=== PATIENT | male | born 1945 | race Caucasian/White ===

== ENCOUNTER 2018-07-19 10:24 | Emergency (ER) | payer MEDICARE ==
[2018-07-19] MEDS ORDERED: oxyCODONE 5 MG TABLET PO STA (12:32)
--- NOTE | 2018-07-19 12:35 | ED Physician Documentation ---
PD HPI BACK PAIN - Stated complaint Stated Complaint: HIP/LEG NUMB - Chief complaint Chief Complaint: Back Pain - History obtained from History obtained from: Patient, Family - History of Present Illness Timing - onset: Other (This is a healthy 73-year-old gentleman who developed right-sided low back pain radiating to the leg with numbness of the anterior and lateral right thigh to the knee over the last 5 days. It started after chopping wood. He is tried Excedrin and ibuprofen at home without relief. He has no significant history of back pain.) Review of Systems Constitutional: denies: Fever, Chills, Fatigue, Weight Loss Cardiac: reports: Reviewed and negative Respiratory: reports: Reviewed and negative : reports: Reviewed and negative PD PAST MEDICAL HISTORY - Past Medical History Past Medical History: Yes Cardiovascular: Hypertension, High cholesterol Respiratory: None Endocrine/Autoimmune: None GI: None : None HEENT: Other Psych: None Musculoskeletal: None, Other Derm: None - Past Surgical History Past Surgical History: Yes General: Colonoscopy HEENT: Cataracts - Present Medications Home Medications: Ambulatory Orders Medication Instructions Recorded Confirmed Losartan/Hydrochlorothiazide 1 tab PO DAILY 06/05/15 03/14/16 [Losartan-Hctz 100-12.5 mg Tab] Atorvastatin Calcium 1 tab PO DAILY 07/19/18 07/19/18 Cyclobenzaprine [Flexeril] 10 mg PO TID PRN #20 tablet 07/19/18 Minocycline HCl 1 tab PO BID 07/19/18 07/19/18 predniSONE [Deltasone] 20 mg PO [id number] #21 tab 07/19/18 - Allergies Allergies/Adverse Reactions: Allergies Allergy/AdvReac Type Severity Reaction Status Date / Time No Known Drug Allergies Allergy Verified 07/19/18 10:33 - Social History Does the pt smoke?: Yes Smoking Status: Current every day smoker Does the pt drink ETOH?: Yes ETOH Use: Beer Does the pt have substance abuse?: No - Immunizations Immunizations are current?: Yes PD ED PE NORMAL - Vitals Vital signs reviewed: Yes - General General: Alert and oriented X 3, No acute distress - Abdomen Abdomen: Normal bowel sounds, Soft, Non tender - Back Back: No spinal TTP, Other (Tender to the Right paralumbar muscles, he has Pretty significant but not quite complete numbness in a right L4 distribution, but his patellar reflexes and Achilles reflexes seem symmetric. The only weakness is in dorsiflexion on the right of the great toe.) - Neuro Neuro: Alert and oriented X 3, Normal speech - Psych Psych: Normal mood, Normal affect Results - Vitals Vitals: Vital Signs - 24 hr 07/19/18 10:32 Temperature 36.7 C Heart Rate 71 Respiratory 18 Rate Blood Pressure 151/76 H O2 Saturation 95 Oxygen O2 Source Room air - Rads (name of study) L spine CT Radiology: EMP read contemporaneously (Mild multilevel degenerative changes without evidence of malignancy or mass lesion.) PD MEDICAL DECISION MAKING - ED course ED course: This is a 73-year-old gentleman who presents with an acute sciatica of the right leg with back pain. Given his advanced age CT imaging was done to rule out causative malignancy which was negative. He had no real help with oxycodone here and will go home on prednisone and Flexeril. Departure - Departure Disposition: Home, Self Care Clinical Impression: Sciatica Qualifiers: Laterality: right Qualified Code(s): M54.31 - Sciatica, right side Condition: Good Record reviewed to determine appropriate education?: Yes Instructions: ED Sciatica Prescriptions: Cyclobenzaprine [Flexeril] 10 mg PO TID PRN #20 tablet PRN Reason: Spasms predniSONE [Deltasone] 20 mg PO [id number] #21 tab Comments: Call your doctor to arrange a follow-up appointment, make the next available appointment. In the interim, return anytime if worse or if new symptoms develop. Your blood pressure was elevated today on check into the emergency department. This does not mean that you have hypertension, it is a common phenomenon to come to the emergency department and have elevated blood pressure. I recommend that you see your primary care physician within the week to have it rechecked when you are feeling better.
--- NOTE | 2018-07-19 14:10 | CT Report ---
Reason: new radiculopathy, advanced age, tobacco Procedure Date: 07/19/2018 Accession Number: [id number] / [id number] Procedure: CT - LUMBAR SPINE WO CPT Code: FULL RESULT: EXAM: CT LUMBAR SPINE WITHOUT CONTRAST EXAM DATE: 07/19/2018 01:19 PM. CLINICAL HISTORY: New radiculopathy, advanced age, tobacco. COMPARISONS: None. TECHNIQUE: Thin-section axial images were acquired of the lumbar spine from T12 to S1 without contrast. Post-processing: Coronal and sagittal reformats. Other: None. In accordance with CT protocol optimization, one or more of the following dose reduction techniques were utilized for this exam: automated exposure control, adjustment of mA and/or KV based on patient size, or use of iterative reconstructive technique. FINDINGS: Alignment: No scoliosis or spondylolisthesis. Bones: Five [id number] lumbar vertebral bodies are present. No fractures or bone lesions. Disk Levels/Facets: Please note that observation of the neural foramina are referred to the osseous neural foramen. T12-L1: Mild anterior osteophytosis with mild loss of disk space height, neural foramina generally preserved. L1-L2: Minimal anterior disk osteophyte complex. Mild posterior broad-based disk bulging, neural foramina widely patent. L2-L3: Mild broad-based posterior disk bulging, neural foramina widely patent. L3-L4: Mild broad-based posterior disk bulging with neural foramina widely patent. L4-L5: Mild posterior broad-based disk bulge with mild effect on the mildly narrowed left neural foramen. Right neural foramen is moderately narrowed. L5-S1: Unremarkable. Musculature: Normal. No fatty atrophy. Other: The visualized retroperitoneum is unremarkable. IMPRESSION: Mild multilevel degenerative changes as described. RADIA
[2018-07-19] MEDS ORDERED: predniSONE 20 MG TABLET PO STA (14:20)
[2018-07-19] MEDS ORDERED: CYCLOBENZAPRINE 10 MG TABLET PO STA (14:20)
[2018-07-19 14:27] VITALS: BP 148/74
== END 2018-07-19 14:26 | disposition home or self-care (01) ==
LOC: ED 10:24
DX: M54.31 Sciatica, right side (principal); I10 Essential (primary) hypertension; F17.200 Nicotine dependence, unspecified, uncomplicated
CPT/HCPCS: 72131; 99283; A9270; J7512

== ENCOUNTER 2018-07-24 13:11 | Outpatient (CLI) | payer MEDICARE ==
--- NOTE | 2018-07-24 14:56 | XRAY Report ---
Reason: KNEE PAIN,RIGHT Procedure Date: 07/24/2018 Accession Number: [id number] / [id number] Procedure: XR - Knee 2 View RT CPT Code: FULL RESULT: EXAM: RIGHT KNEE RADIOGRAPHY. EXAM DATE: 07/24/2018 02:06 PM. CLINICAL HISTORY: Knee pain, right. COMPARISON: None. TECHNIQUE: 2 views. FINDINGS: Bones: Normal. No fractures or bone lesions. Joints: No dislocation or subluxation. Possible trace suprapatellar effusion. Soft Tissues: Anterior soft tissue swelling inferior to the patella. IMPRESSION: Anterior soft tissue swelling. No appreciable fracture. No significant effusion. RADIA
== END 2018-07-24 13:12 | disposition home or self-care (01) ==
LOC: DI 13:11
PROVIDERS: ATTEND Physician Assistant
DX: M25.561 Pain in right knee (principal); R22.41 Localized swelling, mass and lump, right lower limb

== ENCOUNTER 2021-09-09 10:01 | Outpatient (CLI) | payer MEDICARE ==
[2021-09-09 11:47] LABS: BASOPHILS % (AUTO) 0.3 %; EOSINOPHILS # (AUTO) 0.1 10^3/uL (0.0-0.7); EOSINOPHILS % (AUTO) 1.3 %; HCT - HEMATOCRIT 38.4 % (42.0-52.0); LYMPHOCYTES # (AUTO) 1.4 10^3/uL (1.5-3.5); LYMPHOCYTES % (AUTO) 23.4 %; MEAN CORPUSCULAR HEMOGLOBIN 32.1 pg (27.0-31.0); MEAN CORPUSCULAR HGB CONC 33.9 g/dL (32.0-36.0); MEAN CORPUSCULAR VOLUME 94.8 fL (80.0-94.0); MEAN PLATELET VOLUME 10.9 fL (7.4-11.4); MONOCYTES # (AUTO) 0.3 10^3/uL (0.0-1.0); MONOCYTES % (AUTO) 5.1 %; NEUTROPHILS # (AUTO) 4.2 10^3/uL (1.5-6.6); NEUTROPHILS % (AUTO) 69.6 %; PLT - PLATELET COUNT 190 10^3/uL (130-450); RED BLOOD COUNT 4.05 10^6/uL (4.70-6.10); RED CELL DISTRIBUTION WIDTH 12.4 % (12.0-15.0); WHITE BLOOD COUNT 6.1 x10^3/uL (4.8-10.8)
[2021-09-09 12:10] LABS: ESTIMATED AVERAGE GLUCOSE 123 mg/dL (70-100); HEMOGLOBIN A1c% 5.9 % (4.27-6.07)
[2021-09-09 12:13] LABS: ALBUMIN 4.5 g/dL (3.2-5.5); ALBUMIN/GLOBULIN RATIO 1.7 (1.0-2.2); ALKALINE PHOSPHATASE 68 IU/L (42-121); ALT ALANINE AMINOTRANSFERASE 29 IU/L (10-60); AST ASPARTATE AMINOTRANSFERASE 24 IU/L (10-42); BILIRUBIN,TOTAL 1.2 mg/dL (0.2-1.0); BUN - BLOOD UREA NITROGEN 18 mg/dL (6-20); CALCIUM 9.2 mg/dL (8.5-10.3); CARBON DIOXIDE - CO2 25 mmol/L (21-32); CHLORIDE 101 mmol/L (101-111); CHOL/HDL RATIO 3.5 (<5.0); CHOLESTEROL 207 mg/dL; CREATININE 1.1 mg/dL (0.6-1.2); GFR - MDRD 65 (>89); GLUCOSE 110 mg/dL (70-100); HDL CHOLESTEROL 60 mg/dL; LDL CHOLESTEROL,CALCULATED 99 mg/dL; LDL/HDL RATIO 1.7 (<3.6); POTASSIUM 3.7 mmol/L (3.5-5.0); SODIUM 137 mmol/L (135-145); TOTAL PROTEIN 7.2 g/dL (6.7-8.2); TRIGLYCERIDES 239 mg/dL; VLDL CHOLESTEROL 48 mg/dL
[2021-09-09 12:19] LABS: THYROID STIMULATING HORMONE 1.1 uIU/mL (0.34-5.60)
[2021-09-09 17:56] LABS: CREATININE,URINE 58.6 mg/dL; MICROALBUM/CREATININE RATIO,UR 6.8 ug/mg (<30.0); MICROALBUMIN,URINE 0.4 mg/dL (0-300.0)
== END 2021-09-09 10:02 | disposition home or self-care (01) ==
LOC: LAB.N 10:01
PROVIDERS: ATTEND Nurse Practitioner
DX: I10 Essential (primary) hypertension (principal); E78.5 Hyperlipidemia, unspecified; E11.9 Type 2 diabetes mellitus without complications; R97.20 Elevated prostate specific antigen [PSA]
CPT/HCPCS: 36415; 80053; 80061; 82043; 82570; 83036; 83721; 84153; 84443; 85025

== ENCOUNTER 2022-03-14 09:43 | Outpatient (CLI) | payer MEDICARE ==
--- NOTE | 2022-03-14 15:42 | XRAY Report ---
PROCEDURE: Hip w/Pelvis 1V RT INDICATIONS: R HIP PX TECHNIQUE: AP pelvis with lateral view(s) of the right hip(s). COMPARISON: None. FINDINGS: Bones: No fractures or dislocations. Pelvic ring appears intact. No suspicious bony lesions. Ther e is [id number]-cutpdodt symmetrical hip and sacroiliac joint degeneration bilaterally. Soft tissues: The visualized bowel gas pattern is normal. No suspicious soft tissue calcifications. IMPRESSION: Dmcg-wp-vmlearvr degenerative joint disease. Reviewed by: Cristhian Wolfe MD on 03/14/2022 3:41 PM PDT Approved by: Cristhian Wolfe MD on 03/14/2022 3:41 PM PDT Station ID: [id number]
== END 2022-03-14 09:44 | disposition home or self-care (01) ==
LOC: DI.N 09:43
PROVIDERS: ATTEND Physician Assistant
DX: M16.11 Unilateral primary osteoarthritis, right hip (principal)

== ENCOUNTER 2022-04-01 09:50 | Day surgery (SDC) | payer MEDICARE ==
[2022-04-01] MEDS ORDERED: LACTATED RINGERS 1,000 ML IV ONE ×2 (10:25→12:00)
--- NOTE | 2022-04-01 10:38 | ANESTHESIA ---
Pre-Anesthesia VS, & Labs - Diagnosis history of colon polyps - Procedure colonoscopy Vital Signs: Temp Pulse Resp BP Pulse Ox O2 Flow Rate 36.8 C 80 15 147/78 H 97 04/01/22 10:06 04/01/22 10:06 04/01/22 10:06 04/01/22 10:06 04/01/22 10:06 Height: 5 ft 11 in Weight (kg): 82.2 kg Body Mass Index: 25.2 BMI Classification: Overweight - NPO >8 hours Home Medications and Allergies Losartan/Hydrochlorothiazide [Losartan-Hctz 100-12.5 mg Tab] 1 tab PO DAILY 06/05/15 Atorvastatin Calcium 1 tab PO DAILY 07/19/18 Minocycline HCl 1 tab PO BID 07/19/18 Allergies/Adverse Reactions: Allergies Allergy/AdvReac Type Severity Reaction Status Date / Time No Known Drug Allergies Allergy Verified 07/19/18 10:33 Anes History & Medical History - Anesthetic History Anesthesia Complications: reports: No previous complications - Medical History Cardiovascular: reports: Hypertension, High cholesterol Pulmonary: reports: None Gastrointestinal: reports: None Urinary: reports: None Neuro: reports: None Musculoskeletal: reports: None, Other Endocrine/Autoimmune: reports: None Blood Disorders: reports: None Skin: reports: None Smoking Status: Current every day smoker (2 cigarettes) Psychosocial: reports: Alcohol (2 beers per day) History of Cancer?: No - Surgical History General: reports: Colonoscopy Eyes Ears Nose Throat (EENT): reports: Cataracts Exam General: Alert, Oriented x3, Cooperative, No acute distress Dental: WNL Mouth Openin Fingerbreadth Neck Mobility: Normal Mallampati classification: II Thyromental Distance: 4-6 cm Mental/Cognitive Status: Alert/Oriented X3, Normal for patient Plan Anesthesia Type: General, Total IV Consent for Procedure(s) Verified and Reviewed: Yes Code Status: Attempt Resuscitation ASA classification: 2-Mild systemic disease Is this case an emergency?: No
[2022-04-01] MEDS ORDERED: PROPOFOL 500 MG/50 ML 500 MG/50 ML VIAL ONE (10:46)
[2022-04-01] MEDS ORDERED: PROPOFOL 200 MG/20 ML VIAL IVP ONE (11:53)
[2022-04-01 12:40] VITALS: BP 124/64
== END 2022-04-01 09:51 | disposition home or self-care (01) ==
LOC: SDS 09:50
PROVIDERS: ATTEND Surgery
PROC: 0DBP8ZX Excision of Rectum, Via Natural or Artificial Opening Endoscopic, Diagnostic (ICD-10-PCS; 2022-04-01)
PROC: 0DBM8ZX Excision of Descending Colon, Via Natural or Artificial Opening Endoscopic, Diagnostic (ICD-10-PCS; principal; 2022-04-01 11:00)
DX: Z12.11 Encounter for screening for malignant neoplasm of colon (principal); D12.4 Benign neoplasm of descending colon; K63.5 Polyp of colon; K62.1 Rectal polyp; E11.9 Type 2 diabetes mellitus without complications; F17.210 Nicotine dependence, cigarettes, uncomplicated; I12.9 Hypertensive chronic kidney disease with stage 1 through stage 4 chronic kidney disease, or unspecified chronic kidney disease; N18.31 Chronic kidney disease, stage 3a
CPT/HCPCS: 45380; 45385; J7120

== ENCOUNTER 2022-06-14 13:36 | Outpatient (CLI) | payer MEDICARE ==
--- NOTE | 2022-06-14 16:33 | MRI Report ---
PROCEDURE: LUMBAR SPINE WO INDICATIONS: RIGHT SCIATICA TECHNIQUE: Noncontrast sagittal T1 spin echo and T2 fast echo, sagittal STIR, axial T1 and T2 fast spin echo thr ough the lumbar spine. In cases with scoliosis, additional coronal T2 fast spin echo may be performe d. COMPARISON: Correlation is made with prior lumbar spine CT, 07/19/2018 FINDINGS: Image quality: Excellent. Alignment and Curvature: There is mild grade 1 anterolisthesis seen at the L4-L5 level. Associated p ars defects are not seen. Bone Marrow: Marrow is of normal overall signal. Scattered foci of T1-weighted hyperintensity and T 2-weighted hyperintensity are seen, without increased STIR signal. These foci are attributed to benig n vertebral body hemangiomas. No acute vertebral body compression fractures. Spinal Cord: Conus medullaris terminates at the T12-L1 level. Visualized cord demonstrates normal s ignal and size. Paraspinous Soft Tissues: No paravertebral masses. T12-L1: The disc height is well-preserved. There is loss of disc signal seen. No significant neural foraminal or central canal narrowing can be seen. L1-L2: The disc height is well-preserved. There is loss of disc signal seen. Mild to moderate disc bulge is seen, which is eccentric to the left. There is a left foraminal disc protrusion, as on seri es 6 image 18. Associated faintly seen annular fissure is seen, as on series 3 image 13. Mild facet hypertrophy is seen. There is at least moderate left-sided neuroforaminal narrowing. Moderate right -sided neuroforaminal narrowing is seen. Mild central canal narrowing is seen. L2-L3: The disc height is well-preserved. There is loss of disc signal seen. Moderate disc bulge i s seen, which is slightly eccentric to the left. Mild facet hypertrophy is seen. There is at least moderate bilateral neuroforaminal narrowing seen at this level. Compression is seen upon the exiting nerve roots. Mild to moderate central canal narrowing is seen. L3-L4: The disc height is well-preserved. There is loss of disc signal seen. Moderate disc bulge is seen, which is eccentric to the left. A superimposed central disc protrusion is seen. Mild to modera te facet hypertrophy is seen. There is at least moderate bilateral neuroforaminal narrowing seen, lef t worse than right. Compression is seen upon the exiting nerve roots. Moderate central canal narrow ing is seen. L4-L5: Mild loss of disc height and disc signal are seen. Moderate disc bulge is seen at this l evel. A superimposed central disc protrusion is seen. Prominent facet hypertrophy is seen at this level. Moderate to severe bilateral neural foraminal narrowing can be seen, with associated compress ion upon the exiting nerve roots. Moderate to severe central canal narrowing is also seen, as on ser ies 6 image 37. L5-S1: The disc height is well-preserved. There is loss of disc signal seen. Mild to moderate disc bulge is seen at this level. Mild facet hypertrophy is seen. There is moderate left-sided and minim al right-sided neuroforaminal narrowing. Mild to moderate central canal narrowing is seen. IMPRESSION: Multiple levels of lumbar spine degenerative change are seen, which are overall worst at the L4-L5 le ewa. At this level, there is moderate to severe bilateral neuroforaminal narrowing and moderate to se darby central canal narrowing present. Several sites of significant neuroforaminal narrowing can be seen, with associated exiting nerve root compression. Reviewed by: Juan Salcido MD on 06/14/2022 3:31 PM AKST Approved by: Juan Salcido MD on 06/14/2022 3:31 PM [place] Station ID: [id number]
== END 2022-06-14 13:37 | disposition home or self-care (01) ==
LOC: DI 13:36
PROVIDERS: ATTEND Nurse Practitioner
DX: M51.36 Other intervertebral disc degeneration, lumbar region (principal); M48.061 Spinal stenosis, lumbar region without neurogenic claudication; M51.37 Other intervertebral disc degeneration, lumbosacral region; M48.07 Spinal stenosis, lumbosacral region; M47.816 Spondylosis without myelopathy or radiculopathy, lumbar region; M47.817 Spondylosis without myelopathy or radiculopathy, lumbosacral region